=== PATIENT | male | born 1995 | race Caucasian/White ===

== ENCOUNTER 2019-12-02 10:13 | Emergency (ER) | payer BC ==
[~2019-12-02] VITALS: Ht 193 cm; Wt 100.0 kg
[2019-12-02 11:26] LABS: COLLECTION METHOD CLEAN CATCH
[2019-12-02 12:01] LABS: MUCOUS Present /lpf; PH 5 (5-8); SQUAMOUS EPITHELIAL 0-2 /hpf; URINE APPEARANCE Clear; URINE BACTERIA None Seen /hpf; URINE BILIRUBIN Negative (NEGATIVE); URINE BLOOD Negative (NEGATIVE); URINE COLOR Amber; URINE GLUCOSE Negative (NEGATIVE); URINE KETONE Negative (NEGATIVE); URINE LEUKOCYTE ESTERASE Negative (NEGATIVE); URINE NITRATE Negative (NEGATIVE); URINE PROTEIN(semi-quant) 1+ (NEGATIVE); URINE RBC 0-2 /hpf
[2019-12-02 13:40] VITALS: BP 107/72; PULSE 79; TEMP 99.2
== END 2019-12-02 13:45 | disposition home or self-care (01) ==
LOC: COL.ER 10:13
PROVIDERS: Emergency Medicine
DX: J06.9 Acute upper respiratory infection, unspecified (principal); R50.9 Fever, unspecified; Z20.828 Contact with and (suspected) exposure to other viral communicable diseases

== ENCOUNTER → 2021-12-21 | Outpatient (CLI) | payer OTHER | LOC: COL.RAD 07:22 | DX: R22.2 Localized swelling, mass and lump, trunk (principal); B07.8 Other viral warts; L08.89 Other specified local infections of the skin and subcutaneous tissue ==